=== PATIENT | male | born 1985 | race Native Hawaiian/Other Pacific Islander ===

== ENCOUNTER 2018-04-30 22:12 | Emergency (ER) | payer SELFPAY ==
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
[2018-04-30] MEDS ORDERED: TYLENOL PO ONE (23:02)
[2018-04-30] MEDS ORDERED: BOOSTRIX IM ONE (23:02)
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
[2018-04-30] MEDS ORDERED: XYLOCAINE 1% 20 mL INFILTRATI ONE (23:49)
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
[2018-05-01] MEDS ORDERED: TRIPLE ANTIBIOTIC TP ONE (00:33)
[2018-05-01] MEDS ORDERED: MOTRIN PO ONE ×2 (00:39→00:44)
[2018-05-01 00:45] VITALS: BP 136/89
== END 2018-05-01 00:46 | disposition home or self-care (01) ==
LOC: EDBD → ED 22:12
DX: S06.0X0A Concussion without loss of consciousness, initial encounter (principal); S01.01XA Laceration without foreign body of scalp, initial encounter; X93.XXXA Assault by handgun discharge, initial encounter; Y93.89 Activity, other specified; Y92.89 Other specified places as the place of occurrence of the external cause; Y99.8 Other external cause status
CPT/HCPCS: 70450; 72125; 90471; 90715; 99284; A6250

== ENCOUNTER 2018-05-07 19:52 | Emergency (ER) | payer SELFPAY ==
[2018-05-07 19:57] VITALS: BP 139/94
--- NOTE | 2018-05-07 21:02 | Emergency Department Report ---
Suture/Staple Removal - [facility] Chief Complaint: Laceration/Recheck/Suture Stated Complaint: SUTURE REMOVAL Time Seen by Provider: 05/07/18 20:20 When Sutures or Sravani Placed: 5-7 Days Ago Wound Location: sravani placed on scalp 2 different sites six total ED Review of Systems ROS: Stated complaint: SUTURE REMOVAL Other details as noted in HPI Constitutional: denies: chills, fever Eyes: denies: eye pain, eye discharge, vision change ENT: denies: ear pain, throat pain Respiratory: denies: cough, shortness of breath, wheezing Cardiovascular: denies: chest pain, palpitations Endocrine: no symptoms reported Gastrointestinal: denies: abdominal pain, nausea, diarrhea Genitourinary: denies: urgency, dysuria Musculoskeletal: denies: back pain, joint swelling, arthralgia Skin: as per HPI (4 sravani placed on scalp). denies: rash, lesions Neurological: denies: headache, weakness, paresthesias Psychiatric: denies: anxiety, depression Hematological/Lymphatic: denies: easy bleeding, easy bruising ED Past Medical Hx - Past Medical History Previous Medical History?: No - Surgical History Past Surgical History?: No - Social History Smoking Status: Never Smoker - Medications Home Medications: Home Medications Medication Instructions Recorded Confirmed Last Taken Type Bacitracin Zinc Oint [Antibiotic 1 applicatio TP BID #1 tube 05/01/18 Unknown Rx Oint] Ibuprofen [Motrin] 600 mg PO Q8H PRN #25 tablet 05/01/18 Unknown Rx Suture Removal Exam - Exam General: Vital signs noted. No distress. Alert and acting appropriately. Wound: No Pathologic Erythema (wound appears clean with no signs of dehiscence on top of scalp and behind left ear no cellulitis or purulent drainage), No Tenderness, No Drainage, No Pus, No Wound Dehiscence Other Systems: All other systems reviewed and are unremarkable. ED Course Vital Signs 05/07/18 19:50 Temperature 98.5 F Pulse Rate 64 Respiratory 18 Rate Blood Pressure 139/94 O2 Sat by Pulse 100 Oximetry ED Recheck MDM - Differential Diagnosis Suture/Staple Removal - Medical Decision Making A/P: Staple removal scalp 1-6 sravani removed good wound closure achieved no dehiscence or signs of infection 2-triple antibiotic to staple removal site 3-follow-up with primary care Critical care attestation.: If time is entered above; I have spent that time in minutes in the direct care of this critically ill patient, excluding procedure time. ED Disposition Clinical Impression: Removal of staple Disposition: DC-01 TO HOME OR SELFCARE Is pt being admited?: No Does the pt Need Aspirin: No Condition: Stable Instructions: Suture Removal (ED) Time of Disposition: 21:14 Print Language: ICELANDIC
[2018-05-07] MEDS ORDERED: TRIPLE ANTIBIOTIC TP ONE ×2 (21:14→21:15)
== END 2018-05-07 21:20 | disposition home or self-care (01) ==
LOC: ED 19:52
DX: Z48.01 Encounter for change or removal of surgical wound dressing (principal); S01.01XD Laceration without foreign body of scalp, subsequent encounter; X58.XXXD Exposure to other specified factors, subsequent encounter
CPT/HCPCS: A6250